=== PATIENT | female | born 1990 | race American Indian/Alaskan Native ===

== ENCOUNTER 2020-07-08 22:40 | Emergency (ER) | payer MEDICAID ==
[2020-07-08 23:02] VITALS: BP 122/76
[2020-07-09] MEDS ORDERED: HYDROcodone/ACETAMINOPHEN 5-325 MG TAB ONE (05:05)
[2020-07-09] MEDS ORDERED: ETOMIDATE 20 MG/10 ML INJ IV ONE (06:36)
--- NOTE | 2020-07-10 09:20 | Ultrasound Report ---
ULTRASOUND OBSTETRIC INDICATION / CLINICAL INFORMATION: vaginal bleeding. Clinical Gestational Age (GA) in weeks, days: 7-8 weeks TECHNIQUE: Transabdominal. COMPARISON: None available. FINDINGS: GESTATIONAL SAC: No intrauterine gestational sac. YOLK SAC: Not visualized. EMBRYO/FETUS: Not visualized. No intrauterine . ADNEXA: No significant abnormality. FREE FLUID: None. ADDITIONAL FINDINGS: None. IMPRESSION: 1. No intrauterine . Clinical and laboratory correlation is recommended. Signer Name: Pola Mack MD Signed: 07/09/2020 2:56 AM Workstation Name: [id number]
== END 2020-07-09 05:20 | disposition home or self-care (01) ==
LOC: ED 22:40
DX: O20.8 Other hemorrhage in early pregnancy (principal); Z53.21 Procedure and treatment not carried out due to patient leaving prior to being seen by health care provider
CPT/HCPCS: 76801; 84702; 86900; 86901